=== PATIENT | male | born 1975 | race Caucasian/White ===

== ENCOUNTER 2020-01-24 15:46 | Outpatient (CLI) | payer MEDICARE, MEDICAID ==
[~2020-01-24 15:46] MED LIST: ALBU18HF2 IH; ATOR40TA PO; FURO80TA87 PO; INSU100V13 SQ; LANTUS SQ; LISI-222 PO; OMEP-84 PO; PALI6TAB PO; POTA8TAB3 PO; VILA40TA PO; [UNRECOGNIZED DRUG - CODE]
[2020-01-24 16:16] LABS: BASOPHILS % (AUTO) 0.4 % (0-1); EOSINOPHILS # (AUTO) 0.2 X10'3 (0-0.9)
[2020-01-24 16:17] LABS: EOSINOPHILS % (AUTO) 1.9 % (0-6); HEMATOCRIT 27.8 % (42.0-52.0); HEMOGLOBIN 9.2 g/dl (14.0-17.9); LYMPHOCYTES # (AUTO) 1.9 X10'3 (1.1-4.8); MEAN CORPUSCULAR HEMOGLOBIN 29.8 PG (27.0-31.0); MEAN CORPUSCULAR HGB CONC 32.9 g/dL (33.0-36.5); MEAN CORPUSCULAR VOLUME 90.6 FL (78-98); MEAN PLATELET VOLUME 7.7 FL (7.4-10.4); MONOCYTES # (AUTO) 0.9 X10'3 (0-0.9); MONOCYTES % (AUTO) 6.9 % (2-12); NEUTROPHILS # (AUTO) 9.6 X10'3 (1.8-7.7); NEUTROPHILS % (AUTO) 75.8 % (42-75); PLATELET COUNT 621 X10'3 (140-440); RED BLOOD COUNT 3.07 X10'6 (4.70-6.10); RED CELL DISTRIBUTION WIDTH 13.2 % (11.5-14.5); WHITE BLOOD COUNT 12.6 X10'3 (4.5-11.0)
[2020-01-24 16:22] LABS: ALBUMIN 3.4 G/DL (3.4-5.0); ANION GAP 9 (8-16); BLOOD UREA NITROGEN 84 MG/DL (7-18); BUN/CREATININE RATIO 25.5 (5.4-32.0); CALCIUM 8.7 MG/DL (8.5-10.1); CHLORIDE 103 MMOL/L (99-107); GLUCOSE 116 MG/DL (70-104); SODIUM 135 MMOL/L (135-145); TOTAL CARBON DIOXIDE 22.8 MMOL/L (24-32); eGFR 21 ML/MIN
[2020-01-24 16:34] LABS: POTASSIUM 6.6 MMOL/L (3.5-5.1)
== END 2020-01-24 23:59 | disposition home or self-care (01) ==
LOC: LAB SPEC 15:46
PROVIDERS: ATTEND Podiatrist
DX: E10.42 Type 1 diabetes mellitus with diabetic polyneuropathy (principal); E10.621 Type 1 diabetes mellitus with foot ulcer; L97.521 Non-pressure chronic ulcer of other part of left foot limited to breakdown of skin
CPT/HCPCS: 80048; 85025; 85651

== ENCOUNTER 2020-05-20 08:15 | Emergency (ER) | payer MEDICARE, MEDICAID ==
[~2020-05-20] VITALS: Ht 180.3 cm; Wt 133.6 kg
[2020-05-20] MEDS ORDERED: diazepam inj 5 MG/ML inj. IV ONE (08:25)
[2020-05-20] MEDS ORDERED: ondansetron/PF 4mg/2ml inj IV ONE (08:25)
[2020-05-20] MEDS ORDERED: morphine 4 MG/ML inj SYRINge IV ONE (08:25)
[2020-05-20] MEDS ORDERED: HYDR-3965 PO (09:59)
[2020-05-20] MEDS ORDERED: ONDA4TAB6 PO (09:59)
[2020-05-20 10:33] VITALS: BP 150/74
== END 2020-05-20 10:35 | disposition home or self-care (01) ==
LOC: ER 08:15
DX: R07.81 Pleurodynia (principal); I10 Essential (primary) hypertension; E11.9 Type 2 diabetes mellitus without complications; N28.9 Disorder of kidney and ureter, unspecified; Z72.89 Other problems related to lifestyle; Z79.4 Long term (current) use of insulin; Z79.899 Other long term (current) drug therapy; Z88.0 Allergy status to penicillin; Z87.311 Personal history of (healed) other pathological fracture
CPT/HCPCS: 71250; 96374; 96375; 99284; J2270; J2405; J3360

== ENCOUNTER 2021-12-01 10:07 | Emergency (ER) | payer MEDICARE, MEDICAID ==
[~2021-12-01] VITALS: Ht 180.3 cm; Wt 150.0 kg
[~2021-12-01 10:07] MED LIST changes: +ONDA4TAB6 PO; -POTA8TAB3 PO; +POTA8TAB69 PO
[2021-12-01 10:21] VITALS: BP 174/83
[2021-12-01] MEDS ORDERED: DICL20GE TP (11:52)
== END 2021-12-01 11:59 | disposition home or self-care (01) ==
LOC: ER 10:07
DX: M25.561 Pain in right knee (principal); I10 Essential (primary) hypertension; E11.9 Type 2 diabetes mellitus without complications; Z88.0 Allergy status to penicillin; Z79.899 Other long term (current) drug therapy; Z79.84 Long term (current) use of oral hypoglycemic drugs
CPT/HCPCS: 99282

== ENCOUNTER 2022-07-09 05:31 | Day surgery (SDC) | payer MEDICARE, MEDICAID ==
[2022-07-02 12:26] LABS: BASOPHILS # (AUTO) 0.1 X10'3 (0-0.2); BASOPHILS % (AUTO) 0.8 % (0-1); EOSINOPHILS # (AUTO) 0.1 X10'3 (0-0.9); EOSINOPHILS % (AUTO) 1.4 % (0-6); LYMPHOCYTES # (AUTO) 2.1 X10'3 (1.1-4.8); LYMPHOCYTES % (AUTO) 19.9 % (21-51); MEAN CORPUSCULAR HEMOGLOBIN 27.4 PG (27.0-31.0); MEAN CORPUSCULAR HGB CONC 32.9 g/dL (33.0-36.5); MEAN CORPUSCULAR VOLUME 83.2 FL (78-98); MEAN PLATELET VOLUME 8.2 FL (7.4-10.4); MONOCYTES # (AUTO) 0.7 X10'3 (0-0.9); MONOCYTES % (AUTO) 6.4 % (2-12); NEUTROPHILS # (AUTO) 7.4 X10'3 (1.8-7.7); NEUTROPHILS % (AUTO) 71.5 % (42-75); PRE OP HEMATOCRIT 36.3 % (42.0-52.0); PRE OP PLATELET COUNT 326 X10'3 (140-440); RED BLOOD COUNT 4.37 X10'6 (4.70-6.10)
[2022-07-02 12:33] LABS: ALBUMIN 3.7 G/DL (3.4-5.0); ALBUMIN/GLOBULIN RATIO 1.1 (1.1-1.5); ALKALINE PHOSPHATASE 86 IU/L (46-116); BLOOD UREA NITROGEN 38 MG/DL (7-18); CALCIUM 9.2 MG/DL (8.5-10.1); CHLORIDE 104 MMOL/L (99-107); CREATININE 2.11 MG/DL (0.60-1.10); PRE OP ALT 25 U/L (30-65); PRE OP ANION GAP 12 (8-16); PRE OP AST 16 U/L (10-37); PRE OP BILIRUB, TOTAL 0.4 MG/DL (0.0-1.0); PRE OP GLUCOSE 165 MG/DL (70-104); PRE OP SODIUM 139 MMOL/L (135-145); TOTAL CARBON DIOXIDE 23.5 MMOL/L (24-32); TOTAL PROTEIN 7.1 G/DL (6.4-8.2); eGFR 34 ML/MIN
[2022-07-09] VITALS (8 sets, daily range): BP systolic 143–155; BP diastolic 74–91
[~2022-07-09] VITALS: Ht 180.3 cm; Wt 132.9 kg
[~2022-07-09 05:31] MED LIST changes: -ALBU18HF2 IH; -ATOR40TA PO; +DOCUMENT DATE & TIME OF BETA-BLOCKER PO ONE; +DOXE3TAB4 PO; +FERR324T4 PO; +HYDR-3972 PO; +HYDR-4069 PO; +INSU100I77 SQ; +LACT1CAP65 PO; -LANTUS SQ; -LISI-222 PO; +LORA-269 PO; +METO-384 PO; +MULT-1085 PO; +NIFE90TA44 PO; -OMEP-84 PO; +OMEP20CA16 PO; -POTA8TAB69 PO; +SEMA0.25 SQ; +TESTOSTERONE SQ; +VITA0.4T18 PO; +VITE400C PO; -[UNRECOGNIZED DRUG - CODE]; +famotidine 20mg tablet PO ONE; +normal saline 1000ml 500 ML IV SCH
[2022-07-09] MEDS ORDERED: clindamycin 600mg/D5W 50ml 50 ML IV ONE (06:00)
[2022-07-09] MEDS ORDERED: BUPIVAcaine 0.5% inj/PF 30 ML ONE (08:00)
[2022-07-09] MEDS ORDERED: LIDOcaine 1% 30ml preserv. free vial ONE (08:00)
[2022-07-09] MEDS ORDERED: epiNEPHrine 1 mg/ml inj ONE ×2 (08:00→08:50)
[2022-07-09] MEDS ORDERED: fentaNYL/PF 50MCG/1 ML 2ML syringe ONE (08:11)
[2022-07-09] MEDS ORDERED: MIDAZolam 1 MG/ML 5ML VIAL ONE (08:14)
[2022-07-09] MEDS ORDERED: propofol inj 20 ML IV ONE (08:19)
[2022-07-09] MEDS ORDERED: LIDOcaine 2% (20mg/ml) 5ml vial ONE (08:19)
[2022-07-09] MEDS ORDERED: BUPIVAcaine 0.5% inj/PF 30 ml vial IJ ONE (08:25)
[2022-07-09] MEDS ORDERED: HYDROcodone/acetaminophen 10/325mg tab PO PRN (08:50)
--- NOTE | 2022-07-09 08:53 | NUR ---
Received from OR via , accompanied by Anesthesiologist TRIP AND OR NURSE and report given by Anesthesiolgist. PT IS ALERT AND AWAKE AND DENIES PAIN OR DISCOMFORT. ZOFIA WRAP TO RT KNEE; CDI. 20G IV TO RT HAND. VSS Addendum: 07/09/22 at 0907 by Rimma Kuhn RN Amended: Links added.
--- NOTE | 2022-07-09 10:03 | NUR ---
I HAVE REVIEWED D/C INSTRUCTIONS WITH PATIENT AND THEY HAVE VERBALIZED UNDERSTANDING OF INSTRUCTIONS. PATIENT D/C HOME WITH ALL BELONGINGS AND STAFF MEMBER GAVE TRANSPORT HOME. Addendum: 07/09/22 at 1013 by Rimma Kuhn RN Amended: Links added.
== END 2022-07-09 10:03 | disposition home or self-care (01) ==
LOC: PAS 05:31
PROVIDERS: ATTEND Orthopaedic Surgery
DX: S83.261A Peripheral tear of lateral meniscus, current injury, right knee, initial encounter (principal); M10.061 Idiopathic gout, right knee; M10.062 Idiopathic gout, left knee; J44.9 Chronic obstructive pulmonary disease, unspecified; F41.9 Anxiety disorder, unspecified; D64.9 Anemia, unspecified; F25.9 Schizoaffective disorder, unspecified; F31.9 Bipolar disorder, unspecified; E11.22 Type 2 diabetes mellitus with diabetic chronic kidney disease; I13.0 Hypertensive heart and chronic kidney disease with heart failure and stage 1 through stage 4 chronic kidney disease, or unspecified chronic kidney disease; I50.9 Heart failure, unspecified; N18.30 Chronic kidney disease, stage 3 unspecified; E66.01 Morbid (severe) obesity due to excess calories; Z68.41 Body mass index [BMI] 40.0-44.9, adult; Z88.0 Allergy status to penicillin; Z88.8 Allergy status to other drugs, medicaments and biological substances; Z87.891 Personal history of nicotine dependence; Z98.890 Other specified postprocedural states; X58.XXXA Exposure to other specified factors, initial encounter; Y93.89 Activity, other specified; Y92.89 Other specified places as the place of occurrence of the external cause; Y99.8 Other external cause status
CPT/HCPCS: 29881; 36415; 80053; 82948; 85025; J0171; J2250; J2704; J3010; J3490; J7030; J7040; J7120; S0020; Z7506; Z7512; A4215; A4618; A6449; A7000

== ENCOUNTER 2023-07-31 10:59 | Inpatient (IN) | payer MEDICARE, MEDICAID ==
[~2023-07-31] VITALS: Ht 180.3 cm; Wt 157.0 kg
[2023-07-31] VITALS (9 sets, daily range): BP systolic 165–173; BP diastolic 74–79; PULSE 74–93; RESP 13–20; TEMP 98–98.3; O2SAT 93–99
[~2023-07-31 10:59] MED LIST changes: -DOCUMENT DATE & TIME OF BETA-BLOCKER PO ONE; -HYDR-4069 PO; +HYDR25TA90 PO; -NIFE90TA44 PO; +NIFE90TA70 PO; -ONDA4TAB6 PO; -famotidine 20mg tablet PO ONE; -normal saline 1000ml 500 ML IV SCH
[2023-07-31 11:41] LABS: BASOPHILS # (AUTO) 0.1 X10'3 (0-0.2); BASOPHILS % (AUTO) 0.6 % (0-1); EOSINOPHILS # (AUTO) 0.2 X10'3 (0-0.9); EOSINOPHILS % (AUTO) 2.3 % (0-6); HEMATOCRIT 29.9 % (42.0-52.0); LYMPHOCYTES # (AUTO) 1.2 X10'3 (1.1-4.8); LYMPHOCYTES % (AUTO) 12.9 % (21-51); MEAN CORPUSCULAR HEMOGLOBIN 28.2 PG (27.0-31.0); MEAN CORPUSCULAR HGB CONC 33.5 g/dL (33.0-36.5); MEAN CORPUSCULAR VOLUME 84.3 FL (78-98); MEAN PLATELET VOLUME 7.6 FL (7.4-10.4); MONOCYTES # (AUTO) 0.7 X10'3 (0-0.9); MONOCYTES % (AUTO) 7.4 % (2-12); NEUTROPHILS # (AUTO) 7.3 X10'3 (1.8-7.7); NEUTROPHILS % (AUTO) 76.8 % (42-75); PLATELET COUNT 387 X10'3 (140-440); RED BLOOD COUNT 3.55 X10'6 (4.70-6.10); RED CELL DISTRIBUTION WIDTH 14.6 % (11.5-14.5); WHITE BLOOD COUNT 9.5 X10'3 (4.5-11.0)
[2023-07-31 12:03] LABS: ALBUMIN 3.4 G/DL (3.4-5.0); ANION GAP 9 (8-16); BLOOD UREA NITROGEN 62 MG/DL (7-18); BUN/CREATININE RATIO 23.2 (10.0-20.0); CHLORIDE 106 MMOL/L (99-107); CREATININE 2.67 MG/DL (0.60-1.10); POTASSIUM 4.9 MMOL/L (3.5-5.1); PRO BRAIN NATRIURETIC PEPTIDE 635 PG/ML (0-125); SODIUM 139 MMOL/L (135-145); TOTAL CARBON DIOXIDE 23.6 MMOL/L (24-32); eCRCL 37 ML/MIN; eGFR 26 ML/MIN
[2023-07-31 12:05] LABS: GLUCOSE 49 MG/DL (70-104)
[2023-07-31] MEDS ORDERED: CefTRIAXone 2gm/D5W 50ml BAG 50 ML IV SCH (14:15)
[2023-07-31] MEDS: ipratropium/albuterol 3ml nebule NEB ONE (14:16)
[2023-07-31] MEDS ORDERED: CefTRIAXone 2gm/D5W 50ml BAG 50 ML IV ONE (14:19)
[2023-07-31] MEDS: furosemide 40mg/4ml inj IV ONE (14:22)
[2023-07-31] MEDS ORDERED: acetaminophen 325mg tablet PO PRN ×2 (15:00)
[2023-07-31] MEDS ORDERED: magnesium 4gm in 100ml NS 100 ML IV PRN (15:00)
[2023-07-31] MEDS ORDERED: potassium Cl 20 mEq SR tablet PO PRN ×2 (15:00)
[2023-07-31] MEDS ORDERED: magnesium Cl slow-release 64mg tablet PO PRN (15:00)
[2023-07-31] MEDS ORDERED: potassium Cl 40MEQ/1/2NS 520ml 520 ML IV PRN (15:00)
[2023-07-31] MEDS ORDERED: magnesium 2GM in 50ml NS 50 ML IV PRN (15:00)
[2023-07-31] MEDS ORDERED: mag hydrox/Alum hydrox/simeth 30ml oral suspension PO PRN (15:00)
[2023-07-31] MEDS: ipratropium/albuterol 3ml nebule NEB SCH (15:00)
[2023-07-31] MEDS ORDERED: HYDROcodone/acetaminophen 5mg/325mg tablet PO PRN (15:00)
[2023-07-31] MEDS ORDERED: bisacodyl 10mg suppository rectal RC PRN (15:00)
[2023-07-31] MEDS ORDERED: acetaminophen 650mg rectal suppository RC PRN (15:00)
[2023-07-31] MEDS ORDERED: diphenhydrAMINE 25mg capsule PO PRN (15:00)
[2023-07-31] MEDS ORDERED: ondansetron/PF 4mg/2ml inj IV PRN (15:00)
[2023-07-31] MEDS ORDERED: magnesium hydroxide 30ml (MOM) UD suspension PO PRN (15:00)
[2023-07-31] MEDS: azithromycin/NS 500mg/250ml 250 ML IV ONE (15:10)
[2023-07-31] MEDS: normal saline 1000ml 1,000 ML IV SCH (15:13)
[2023-07-31] MEDS: PERFLUTREN PROTEIN-A MICROSPHR (Optison) 0.22 MG/ML 3ML VIAL IV ONE (15:13)
[2023-07-31] MEDS: methylPREDNISolone sod succ 125mg/2ml vial IV ONE (15:14)
[2023-07-31] MEDS: methylPREDNISolone sod succ/PF 40mg inj. IV SCH (16:00)
[2023-07-31 16:07] LABS: BILIRUBIN,URINE NEGATIVE (Neg); CLARITY,URINE CLEAR (Clear); COLOR,URINE YELLOW (Yellow); GLUCOSE, URINE NEGATIVE (Neg); KETONES,URINE NEGATIVE (Neg); LEUKOCYTE ESTERASE ,URINE NEGATIVE (Neg); NITRITES, URINE NEGATIVE (Neg); OCCULT BLOOD,URINE NEGATIVE (Neg); PROTEIN,URINE NEGATIVE (Neg); UROBILINOGEN,URINE 0.2 E.U/dL (0.2-1.0)
[2023-07-31 16:12] LABS: UA COLLECTION TYPE CLN CATCH MIDSTREAM
[2023-07-31] MEDS: K and/or MAG REPLACEMENT MC SCH (20:00)
[2023-07-31] MEDS: HYDROcodone/acetaminophen 10/325mg tab PO PRN (20:34)
[2023-07-31] MEDS: heparin, porcine 5000 units/ml vial SQ SCH (20:35)
[2023-07-31] MEDS: docusate sod 100mg capsule PO SCH (20:35)
[2023-07-31] MEDS: furosemide 40mg/4ml inj IV SCH (21:02)
[2023-07-31] MEDS: LORazepam 1 MG tablet PO PRN (21:49)
[2023-07-31] MEDS: MESSAGE TO PHARMACY PO ONE (22:35)
[2023-07-31] MEDS ORDERED: glucagon, human recombinant 1mg kit SUBCUT PRN (22:35)
[2023-07-31] MEDS ORDERED: DEXTROSE 15 GM of carb/4 tabs (each vial/BOTTLE has 4 tablets) PO PRN ×2 (22:35)
[2023-07-31] MEDS ORDERED: dextrose 50%-water 50ml dispensing syringe IV PRN ×2 (22:35)
[2023-07-31] MEDS: insulin Lispro (HumaLOG) vial - multi-dose SQ SCH (23:09)
[2023-07-31] MEDS: insulin glargine (Lantus) pen - multi-dose SQ SCH (23:10)
[2023-08-01] VITALS (11 sets, daily range): BP systolic 130–176; BP diastolic 73–82; PULSE 88–95; RESP 16–19; TEMP 97.9–99.7; O2SAT 95–98
[2023-08-01] MEDS: insulin Lispro (HumaLOG) vial - multi-dose SQ ONE (02:54)
[2023-08-01 07:27] LABS: BASOPHILS % (AUTO) 0.4 % (0-1); EOSINOPHILS % (AUTO) 0 % (0-6); HEMATOCRIT 28.6 % (42.0-52.0); HEMOGLOBIN 9.3 g/dl (14.0-17.9); LYMPHOCYTES # (AUTO) 0.6 X10'3 (1.1-4.8); LYMPHOCYTES % (AUTO) 5.3 % (21-51); MEAN CORPUSCULAR HEMOGLOBIN 27.4 PG (27.0-31.0); MEAN CORPUSCULAR HGB CONC 32.6 g/dL (33.0-36.5); MEAN CORPUSCULAR VOLUME 84.2 FL (78-98); MONOCYTES # (AUTO) 0.2 X10'3 (0-0.9); MONOCYTES % (AUTO) 1.6 % (2-12); NEUTROPHILS # (AUTO) 10.7 X10'3 (1.8-7.7); NEUTROPHILS % (AUTO) 92.7 % (42-75); PLATELET COUNT 359 X10'3 (140-440); RED CELL DISTRIBUTION WIDTH 14.5 % (11.5-14.5); WHITE BLOOD COUNT 11.6 X10'3 (4.5-11.0)
[2023-08-01 07:53] LABS: ALANINE AMINOTRANSFERASE 26 U/L (12-78); ALBUMIN 3.1 G/DL (3.4-5.0); ALBUMIN/GLOBULIN RATIO 0.8 (1.1-1.5); ALKALINE PHOSPHATASE 81 IU/L (46-116); ANION GAP 15 (8-16); ASPARTATE AMINO TRANSFERASE 7 U/L (10-37); BILIRUBIN,TOTAL 0.4 MG/DL (0.1-1.0); BLOOD UREA NITROGEN 66 MG/DL (7-18); CALCIUM 8.6 MG/DL (8.5-10.1); CHLORIDE 100 MMOL/L (99-107); CHOL/HDL RATIO 5.1 (0.00-4.99); CHOLESTEROL 177 MG/DL (0-200); CREATININE 2.64 MG/DL (0.60-1.10); HDL CHOLESTEROL 35 MG/DL (35-60); LDL CHOLESTEROL 127 MG/DL (50-100); MAGNESIUM 2.7 MG/DL (1.5-2.4); PHOSPHORUS 3.8 MG/DL (2.3-4.5); POTASSIUM 5.5 MMOL/L (3.5-5.1); SODIUM 135 MMOL/L (135-145); TOTAL CARBON DIOXIDE 20.5 MMOL/L (24-32); TOTAL PROTEIN 6.9 G/DL (6.4-8.2); TRIGLYCERIDES 101 MG/DL (20-135); eCRCL 37 ML/MIN; eGFR 26 ML/MIN
[2023-08-01 08:07] LABS: GLUCOSE 445 MG/DL (70-104)
[2023-08-01] MEDS: levoFLOXACIN-Levaquin 750MG/D5 150 ML IV SCH (08:40)
[2023-08-01] MEDS ORDERED: INSU100I29 SQ (09:11)
[2023-08-01] MEDS ORDERED: PREG25CA19 PO (09:11)
[2023-08-01] MEDS ORDERED: METO-411 PO (09:11)
[2023-08-01] MEDS ORDERED: ARIP30TA22 PO (09:11)
[2023-08-01] MEDS ORDERED: FLU VACC QS2023-24(6MOS UP)/PF 60 MCG/0.5 ML SYRINGE IM ONE (10:00)
[2023-08-01] MEDS ORDERED: LEVO750T68 PO (14:25)
[2023-08-01] MEDS ORDERED: PRED50TA PO (14:25)
[2023-08-01] MEDS ORDERED: ALBU2.5V7 NEB (14:25)
[2023-08-02] MEDS ORDERED: FLU VACC QS2023-24(6MOS UP)/PF 60 MCG/0.5 ML SYRINGE IM ONE (10:55)
[2023-08-03] MEDS ORDERED: levoFLOXACIN-Levaquin 750MG/D5 150 ML IV SCH (08:00)
== END 2023-08-01 14:40 | disposition left against medical advice (07) | DRG 193 ==
LOC: ER 11:00 → ED HOLD 15:00 → PCU 3S 19:11
PROVIDERS: ADMIT Family Medicine; ATTEND Family Medicine
DX: J18.9 Pneumonia, unspecified organism (principal); I50.33 Acute on chronic diastolic (congestive) heart failure; J44.0 Chronic obstructive pulmonary disease with (acute) lower respiratory infection; I13.0 Hypertensive heart and chronic kidney disease with heart failure and stage 1 through stage 4 chronic kidney disease, or unspecified chronic kidney disease; J44.1 Chronic obstructive pulmonary disease with (acute) exacerbation; Z68.42 Body mass index [BMI] 45.0-49.9, adult; Z53.21 Procedure and treatment not carried out due to patient leaving prior to being seen by health care provider; E66.01 Morbid (severe) obesity due to excess calories; Z20.822 Contact with and (suspected) exposure to COVID-19; G89.29 Other chronic pain; N18.9 Chronic kidney disease, unspecified; E10.22 Type 1 diabetes mellitus with diabetic chronic kidney disease; G47.33 Obstructive sleep apnea (adult) (pediatric); Z87.891 Personal history of nicotine dependence; Z88.0 Allergy status to penicillin; Z88.8 Allergy status to other drugs, medicaments and biological substances; Z79.4 Long term (current) use of insulin; Z79.899 Other long term (current) drug therapy
CPT/HCPCS: 36415; 71045; 71250; 80048; 80053; 80061; 81003; 82948; 83036; 83605; 83735; 83880; 84100; 84145; 84484; 85025; 86140; 87040; 87081; 87502; 87503; 87811; 93005; 93306; 94640; 94760; 96374; 99285; G0378; J0456; J1644; J1815; J1940; J1956; J2920; J2930; J7030